=== PATIENT | male | born 1945 | race Caucasian/White ===

== ENCOUNTER 2016-05-24 21:53 | Inpatient (IN) | payer MEDICARE, OTHER ==
[~2016-05-24 21:53] MED LIST: DAILY MULTIPLE1 EAC2 PO; ELIQUIS2.5 M1 PO; JANTOVEN2 M1; LASIX40 M1 PO; NORCO 5-325 TA1 EACH PO; PRINIVIL10 M1 PO; TOPROL XL100 M1 PO
[2016-05-24 22:34] LABS: BASO % 0.6 % (0-2); EOS % 0.6 % (0-7); HCT-HEMATOCRIT 45.9 % (36.0-53.5); HGB-HEMOGLOBIN 14.6 gm/dl (13.5-17.0); IMMATURE GRANULOCYTES ABSOLUTE 0.02 tho/cmm (0-0.03); IMMATURE GRANULOCYTES PERCENT 0.3 % (0-0.3); LYMPH % 17.3 % (20-45); LYMPH ABSOLUTE COUNT 1.2 tho/cmm (0.8-4.5); MCHC MEAN CORPUSCULAR HGB CONC 31.8 % (32.0-36.0); MCV (MEAN CELL VOLUME) 91.3 fl (82.0-96.0); MEAN PLATELET VOLUME 11.8 cmc (9.4-12.4); MONO % 5.9 % (0-12); MONOCYTE ABSOLUTE COUNT 0.4 tho/cmm (0.0-1.2); NEUTROPHIL ABSOLUTE COUNT 5.4 tho/cmm (1.6-8.0); NEUTROPHIL-AUTOMATED 5.4 tho/cmm (1.6-8.0); NEUTROPHILS % 75.3 % (40-80); PLATELET COUNT 186 tho/cmm (150-450); RED BLOOD COUNT 5.03 mil/cmm (4.40-5.70); RED CELL DISTRIBUTION WIDTH 17.6 % (12.4-16.4); WHITE BLOOD COUNT 7.1 tho/cmm (4.0-10.0)
[2016-05-24 22:50] LABS: ARTERIAL BLD GAS O2 SATURATION 99 % (95-98); ARTERIAL PO2 194 mmHg (70-100); BLOOD GAS BASE EXCESS -15 mM/L (-/+3)
[2016-05-24 22:53] LABS: ALB/GLOB RATIO 0.8 (0.8-2.0); ALBUMIN 3.3 g/dl (3.5-5.0); ALKALINE PHOSPHATASE 140 U/L (33-138); ALT/SGPT 89 U/L (12-78); ANION GAP 24 mmol/L (0-20); AST/SGOT 87 U/L (10-40); BILIRUBIN,TOTAL 2.1 mg/dl (0.0-1.5); BLOOD UREA NITROGEN 30 mg/dl (6-24); CARBON DIOXIDE-VENOUS 18 mmol/L (22-32); CHLORIDE 103 mmol/l (96-110); CREATININE 1.86 mg/dl (0.60-1.30); POTASSIUM 5.1 mmol/L (3.7-5.1); SODIUM 140 mmol/L (135-145); eGFR VALUE FOR BLACK 41 mL/Min
[2016-05-24 22:55] LABS: ABG CO2 ARTERIAL 10 mmol/L (21-27); ARTERIAL BLOOD GAS PCO2 20 mmHg (32-45); BICARBONATE 10 mmol/L (21-28)
[2016-05-24 22:56] LABS: GLUCOSE 61 mg/dL (70-110)
[2016-05-24 23:19] LABS: URINE APPEARANCE HAZY; URINE BILIRUBIN NEGATIVE (NEG); URINE BLOOD SMALL (NEG); URINE COLOR YELLOW; URINE GLUCOSE (UA) NEGATIVE (NEG); URINE KETONE NEGATIVE (NEG); URINE LEUKOCYTE ESTERASE POSITIVE (NEG); URINE NITRITE NEGATIVE (NEG); URINE PROTEIN LARGE (NEG)
[2016-05-24 23:25] LABS: URINE BACTERIA 1+; URINE EPITHELIAL CELLS 0 /[HPF] (0-10); URINE RBC 0-1 /[HPF] (0-5)
[2016-05-25 00:12] LABS: ABG CO2 ARTERIAL 11 mmol/L (21-27); ARTERIAL BLD GAS O2 SATURATION 99 % (95-98); ARTERIAL PO2 183 mmHg (70-100); BICARBONATE 10 mmol/L (21-28); BLOOD GAS BASE EXCESS -13 mM/L (-/+3); PH 7.34 Units (7.35-7.45)
[2016-05-25 00:15] LABS: ARTERIAL BLOOD GAS PCO2 20 mmHg (32-45)
[2016-05-25 05:14] LABS: ABG CO2 ARTERIAL 11 mmol/L (21-27); ARTERIAL BLD GAS O2 SATURATION 99 % (95-98); ARTERIAL PO2 165 mmHg (70-100); BICARBONATE 10 mmol/L (21-28); BLOOD GAS BASE EXCESS -14 mM/L (-/+3); PH 7.34 Units (7.35-7.45)
[2016-05-25 05:17] LABS: ARTERIAL BLOOD GAS PCO2 20 mmHg (32-45)
[2016-05-25 05:25] LABS: BASO % 0.2 % (0-2); HCT-HEMATOCRIT 45.5 % (36.0-53.5); HGB-HEMOGLOBIN 14.3 gm/dl (13.5-17.0); IMMATURE GRANULOCYTES ABSOLUTE 0.05 tho/cmm (0-0.03); IMMATURE GRANULOCYTES PERCENT 0.4 % (0-0.3); LYMPH % 6.5 % (20-45); LYMPH ABSOLUTE COUNT 0.8 tho/cmm (0.8-4.5); MCH (MEAN CORPUSCULAR HGB) 28.6 pg (28.0-32.0); MCHC MEAN CORPUSCULAR HGB CONC 31.4 % (32.0-36.0); MEAN PLATELET VOLUME 11.6 cmc (9.4-12.4); MONO % 6.6 % (0-12); MONOCYTE ABSOLUTE COUNT 0.8 tho/cmm (0.0-1.2); NEUTROPHIL ABSOLUTE COUNT 10.7 tho/cmm (1.6-8.0); NEUTROPHIL-AUTOMATED 10.7 tho/cmm (1.6-8.0); NEUTROPHILS % 86.3 % (40-80); PLATELET COUNT 202 tho/cmm (150-450); RED CELL DISTRIBUTION WIDTH 17.8 % (12.4-16.4)
[2016-05-25 05:27] LABS: INR 2.4 INR (0.9-1.1); PROTHROMBIN TIME 28.8 SECONDS (9.0-13.6)
[2016-05-25 05:39] LABS: WHITE BLOOD COUNT 12.4 tho/cmm (4.0-10.0)
[2016-05-25 05:51] LABS: ALB/GLOB RATIO 0.9 (0.8-2.0); ALBUMIN 3.3 g/dl (3.5-5.0); BILIRUBIN,TOTAL 2.7 mg/dl (0.0-1.5); BLOOD UREA NITROGEN 30 mg/dl (6-24); CALCIUM 8.9 mg/dl (8.5-10.5); CARBON DIOXIDE-VENOUS 17 mmol/L (22-32); CHLORIDE 101 mmol/l (96-110); CREATININE 2.05 mg/dl (0.60-1.30); SODIUM 137 mmol/L (135-145); eGFR VALUE FOR BLACK 36 mL/Min
[2016-05-25 05:52] LABS: BILIRUBIN,DIRECT 1.5 mg/dl (0.0-0.3); BILIRUBIN,INDIRECT 1.2 mg/dL (0.0-1.0)
[2016-05-25 05:53] LABS: ANION GAP 25 mmol/L (0-20); GLUCOSE 69 mg/dL (70-110); POTASSIUM 6.2 mmol/L (3.7-5.1)
[2016-05-25 09:58] LABS: LIPASE 98 U/L (73-393)
[2016-05-25 13:49] LABS: ALB/GLOB RATIO 0.9 (0.8-2.0); ALBUMIN 2.9 g/dl (3.5-5.0); ALKALINE PHOSPHATASE 133 U/L (33-138); ALT/SGPT 501 U/L (12-78); ANION GAP 24 mmol/L (0-20); BILIRUBIN,TOTAL 2.8 mg/dl (0.0-1.5); BLOOD UREA NITROGEN 35 mg/dl (6-24); CALCIUM 8.8 mg/dl (8.5-10.5); CARBON DIOXIDE-VENOUS 21 mmol/L (22-32); CHLORIDE 100 mmol/l (96-110); GLUCOSE 84 mg/dL (70-110); MAGNESIUM 2.8 mg/dl (1.3-2.6); PHOSPHOROUS 5.9 mg/dl (2.5-4.9); SODIUM 140 mmol/L (135-145); eGFR VALUE FOR BLACK 30 mL/Min
[2016-05-25 13:50] LABS: POTASSIUM 5.2 mmol/L (3.7-5.1)
[2016-05-25 13:56] LABS: AST/SGOT 1114 U/L (10-40)
[2016-05-25 14:03] LABS: ABG CO2 ARTERIAL 15 mmol/L (21-27); ARTERIAL BLD GAS O2 SATURATION 97 % (95-98); BICARBONATE 14 mmol/L (21-28); BLOOD GAS BASE EXCESS -8 mM/L (-/+3); PH 7.47 Units (7.35-7.45)
[2016-05-25 14:05] LABS: ARTERIAL PO2 86 mmHg (70-100)
[2016-05-25 14:08] LABS: ARTERIAL BLOOD GAS PCO2 20 mmHg (32-45)
[2016-05-25 16:56] LABS: URINE TOTAL PROTEIN-RANDOM 89.3 mg/dl (<11.8)
[2016-05-25 21:50] LABS: URINE PRT/CR RATIO 89.3 Ratio (0.0-0.20)
[2016-05-26 03:11] LABS: BASO % 0.1 % (0-2); HCT-HEMATOCRIT 35.4 % (36.0-53.5); HGB-HEMOGLOBIN 11.7 gm/dl (13.5-17.0); IMMATURE GRANULOCYTES ABSOLUTE 0.03 tho/cmm (0-0.03); IMMATURE GRANULOCYTES PERCENT 0.3 % (0-0.3); LYMPH ABSOLUTE COUNT 1.2 tho/cmm (0.8-4.5); MCH (MEAN CORPUSCULAR HGB) 28.7 pg (28.0-32.0); MCHC MEAN CORPUSCULAR HGB CONC 33.1 % (32.0-36.0); MCV (MEAN CELL VOLUME) 86.8 fl (82.0-96.0); MEAN PLATELET VOLUME 11.3 cmc (9.4-12.4); MONO % 9.3 % (0-12); NEUTROPHIL ABSOLUTE COUNT 8.9 tho/cmm (1.6-8.0); NEUTROPHIL-AUTOMATED 8.9 tho/cmm (1.6-8.0); NEUTROPHILS % 79.3 % (40-80); PLATELET COUNT 168 tho/cmm (150-450); RED BLOOD COUNT 4.08 mil/cmm (4.40-5.70); RED CELL DISTRIBUTION WIDTH 17.2 % (12.4-16.4); WHITE BLOOD COUNT 11.2 tho/cmm (4.0-10.0)
[2016-05-26 03:28] LABS: ALB/GLOB RATIO 1.3 (0.8-2.0); ALBUMIN 3.4 g/dl (3.5-5.0); ALKALINE PHOSPHATASE 112 U/L (33-138); ANION GAP 18 mmol/L (0-20); BILIRUBIN,TOTAL 2.4 mg/dl (0.0-1.5); BLOOD UREA NITROGEN 40 mg/dl (6-24); CALCIUM 8.4 mg/dl (8.5-10.5); CARBON DIOXIDE-VENOUS 25 mmol/L (22-32); CHLORIDE 96 mmol/l (96-110); SODIUM 135 mmol/L (135-145); eGFR VALUE FOR BLACK 30 mL/Min
[2016-05-26 03:35] LABS: ALT/SGPT 874 U/L (12-78); GLUCOSE 145 mg/dL (70-110)
[2016-05-26 03:49] LABS: AST/SGOT 1893 U/L (10-40)
[2016-05-26 11:55] LABS: BASO % 0.1 % (0-2); EOS % 0.2 % (0-7); HGB-HEMOGLOBIN 12.2 gm/dl (13.5-17.0); IMMATURE GRANULOCYTES ABSOLUTE 0.03 tho/cmm (0-0.03); IMMATURE GRANULOCYTES PERCENT 0.3 % (0-0.3); LYMPH % 8.7 % (20-45); LYMPH ABSOLUTE COUNT 0.8 tho/cmm (0.8-4.5); MCH (MEAN CORPUSCULAR HGB) 28.6 pg (28.0-32.0); MCV (MEAN CELL VOLUME) 86.9 fl (82.0-96.0); MEAN PLATELET VOLUME 10.9 cmc (9.4-12.4); MONO % 8.1 % (0-12); MONOCYTE ABSOLUTE COUNT 0.8 tho/cmm (0.0-1.2); NEUTROPHIL ABSOLUTE COUNT 7.6 tho/cmm (1.6-8.0); NEUTROPHIL-AUTOMATED 7.6 tho/cmm (1.6-8.0); NEUTROPHILS % 82.6 % (40-80); PLATELET COUNT 146 tho/cmm (150-450); RED BLOOD COUNT 4.26 mil/cmm (4.40-5.70); RED CELL DISTRIBUTION WIDTH 17.4 % (12.4-16.4); WHITE BLOOD COUNT 9.3 tho/cmm (4.0-10.0)
[2016-05-26 12:21] LABS: ALB/GLOB RATIO 1.4 (0.8-2.0); ALBUMIN 3.8 g/dl (3.5-5.0); ALKALINE PHOSPHATASE 116 U/L (33-138); ALT/SGPT 898 U/L (12-78); ANION GAP 16 mmol/L (0-20); BILIRUBIN,TOTAL 2.2 mg/dl (0.0-1.5); BLOOD UREA NITROGEN 38 mg/dl (6-24); CALCIUM 8.5 mg/dl (8.5-10.5); CARBON DIOXIDE-VENOUS 30 mmol/L (22-32); CHLORIDE 92 mmol/l (96-110); CREATININE 2.23 mg/dl (0.60-1.30); GLUCOSE 147 mg/dL (70-110); POTASSIUM 3.3 mmol/L (3.7-5.1); SODIUM 135 mmol/L (135-145); eGFR VALUE FOR BLACK 33 mL/Min
[2016-05-26 12:29] LABS: AST/SGOT 1796 U/L (10-40)
[2016-05-26 14:30] LABS: URINE PRT/CR RATIO 0.73 Ratio (0.0-0.20)
[2016-05-27 03:52] LABS: BASO % 0.1 % (0-2); EOS % 0.3 % (0-7); HCT-HEMATOCRIT 36.4 % (36.0-53.5); HGB-HEMOGLOBIN 11.7 gm/dl (13.5-17.0); IMMATURE GRANULOCYTES ABSOLUTE 0.02 tho/cmm (0-0.03); IMMATURE GRANULOCYTES PERCENT 0.3 % (0-0.3); LYMPH % 12.2 % (20-45); LYMPH ABSOLUTE COUNT 0.9 tho/cmm (0.8-4.5); MCH (MEAN CORPUSCULAR HGB) 28.2 pg (28.0-32.0); MCHC MEAN CORPUSCULAR HGB CONC 32.1 % (32.0-36.0); MCV (MEAN CELL VOLUME) 87.7 fl (82.0-96.0); MEAN PLATELET VOLUME 11.5 cmc (9.4-12.4); MONO % 10.1 % (0-12); MONOCYTE ABSOLUTE COUNT 0.7 tho/cmm (0.0-1.2); NEUTROPHIL ABSOLUTE COUNT 5.5 tho/cmm (1.6-8.0); NEUTROPHIL-AUTOMATED 5.5 tho/cmm (1.6-8.0); PLATELET COUNT 122 tho/cmm (150-450); RED BLOOD COUNT 4.15 mil/cmm (4.40-5.70); RED CELL DISTRIBUTION WIDTH 17.4 % (12.4-16.4); WHITE BLOOD COUNT 7.2 tho/cmm (4.0-10.0)
[2016-05-27 04:19] LABS: ALB/GLOB RATIO 1.3 (0.8-2.0); ALBUMIN 3.4 g/dl (3.5-5.0); ALKALINE PHOSPHATASE 110 U/L (33-138); ALT/SGPT 772 U/L (12-78); ANION GAP 14 mmol/L (0-20); BILIRUBIN,TOTAL 2.1 mg/dl (0.0-1.5); BLOOD UREA NITROGEN 42 mg/dl (6-24); C-REACTIVE PROTEIN 1.5 mg/dl (0-0.9); CALCIUM 8.3 mg/dl (8.5-10.5); CARBON DIOXIDE-VENOUS 31 mmol/L (22-32); CHLORIDE 95 mmol/l (96-110); CREATININE 1.97 mg/dl (0.60-1.30); GLUCOSE 137 mg/dL (70-110); POTASSIUM 3.5 mmol/L (3.7-5.1); SODIUM 136 mmol/L (135-145); eGFR VALUE FOR BLACK 38 mL/Min
[2016-05-27 04:37] LABS: AST/SGOT 1255 U/L (10-40)
[2016-05-28 04:58] LABS: BASO % 0.1 % (0-2); HCT-HEMATOCRIT 44.2 % (36.0-53.5); HGB-HEMOGLOBIN 14.6 gm/dl (13.5-17.0); IMMATURE GRANULOCYTES ABSOLUTE 0.02 tho/cmm (0-0.03); IMMATURE GRANULOCYTES PERCENT 0.2 % (0-0.3); LYMPH % 10.8 % (20-45); LYMPH ABSOLUTE COUNT 1.2 tho/cmm (0.8-4.5); MCV (MEAN CELL VOLUME) 87.7 fl (82.0-96.0); MEAN PLATELET VOLUME 12.1 cmc (9.4-12.4); MONO % 9.9 % (0-12); MONOCYTE ABSOLUTE COUNT 1.1 tho/cmm (0.0-1.2); NEUTROPHIL ABSOLUTE COUNT 8.5 tho/cmm (1.6-8.0); NEUTROPHIL-AUTOMATED 8.5 tho/cmm (1.6-8.0); PLATELET COUNT 94 tho/cmm (150-450); RED BLOOD COUNT 5.04 mil/cmm (4.40-5.70); RED CELL DISTRIBUTION WIDTH 17.4 % (12.4-16.4); WHITE BLOOD COUNT 10.8 tho/cmm (4.0-10.0)
[2016-05-28 05:12] LABS: ALB/GLOB RATIO 1.3 (0.8-2.0); ALBUMIN 3.4 g/dl (3.5-5.0); ALKALINE PHOSPHATASE 144 U/L (33-138); ALT/SGPT 975 U/L (12-78); ANION GAP 20 mmol/L (0-20); BILIRUBIN,TOTAL 3.1 mg/dl (0.0-1.5); BLOOD UREA NITROGEN 47 mg/dl (6-24); CALCIUM 9.3 mg/dl (8.5-10.5); CARBON DIOXIDE-VENOUS 26 mmol/L (22-32); CHLORIDE 94 mmol/l (96-110); CREATININE 2.11 mg/dl (0.60-1.30); GLUCOSE 78 mg/dL (70-110); MAGNESIUM 2.3 mg/dl (1.3-2.6); SODIUM 135 mmol/L (135-145); eGFR VALUE FOR BLACK 35 mL/Min
[2016-05-28 05:28] LABS: AST/SGOT 1482 U/L (10-40)
[2016-05-29] MEDS ORDERED: MORPHINE S20 MG/1 M1 PO (10:30)
[2016-05-29] MEDS ORDERED: ATIVAN0.5 M1 PO (10:32)
== END 2016-05-29 10:07 | disposition hospice, inpatient (51) | DRG 291 ==
LOC: EDMED 21:53 → EMR2 05-25 00:45 → CCU 05-25 03:10
PROVIDERS: Emergency Medicine; Family Medicine; Internal Medicine Nephrology; Nurse Practitioner; Physician Assistant; ADMIT Hospitalist
PROC: 05HB33Z Insertion of Infusion Device into Right Basilic Vein, Percutaneous Approach (ICD-10-PCS; principal; 2016-05-25)
DX: I13.0 Hypertensive heart and chronic kidney disease with heart failure and stage 1 through stage 4 chronic kidney disease, or unspecified chronic kidney disease (principal); K72.00 Acute and subacute hepatic failure without coma; J96.21 Acute and chronic respiratory failure with hypoxia; R57.0 Cardiogenic shock; E43 Unspecified severe protein-calorie malnutrition; E87.2 Acidosis; R18.8 Other ascites; N17.9 Acute kidney failure, unspecified; I50.23 Acute on chronic systolic (congestive) heart failure; N39.0 Urinary tract infection, site not specified; Z51.5 Encounter for palliative care; I95.9 Hypotension, unspecified; I42.9 Cardiomyopathy, unspecified; Z66 Do not resuscitate; I27.2 Other secondary pulmonary hypertension; N18.3 Chronic kidney disease, stage 3 (moderate); E87.5 Hyperkalemia; E86.0 Dehydration; I08.3 Combined rheumatic disorders of mitral, aortic and tricuspid valves; M19.90 Unspecified osteoarthritis, unspecified site; Z95.810 Presence of automatic (implantable) cardiac defibrillator; Z68.21 Body mass index [BMI] 21.0-21.9, adult; Z79.01 Long term (current) use of anticoagulants; Z86.718 Personal history of other venous thrombosis and embolism; Z86.711 Personal history of pulmonary embolism
CPT/HCPCS: A9537; C1751; J0744; J1940; J2543; J3370; J7030; J7040; J7050; P9047; P9612